=== PATIENT | female | born 1950 | race American Indian/Alaskan Native ===

== ENCOUNTER 2017-11-03 08:21 | Day surgery (SDC) | payer MEDICARE, MEDICAID ==
[2017-10-30 08:53] VITALS: BMI 29.2
[2017-11-03 08:52] LABS: BASO # 0.03 K/mm3 (0.0-2.0); BASO % 0.5 % (0.0-3.0); EOS # 0.2 (0.0-0.7); EOS % 2.6 % (1.5-5.0); GRAN # 3.05 (1.4-6.5); GRAN % 50.5 % (50.0-68.0); HEMOGLOBIN 9.1 g/dL (12.0-16.0); LYMPH # 2.4 (1.2-3.4); LYMPH % 40.4 % (22.0-35.0); MEAN CELL VOLUME 74.3 fl (80.0-105.0); MEAN CORPUSCULAR HEMOGLOBIN 24.1 pg (25.0-35.0); MEAN CORPUSCULAR HGB CONC 32.5 g/dl (31.0-37.0); MEAN PLATELET VOLUME 11.4 fl (7.0-11.0); MONO # 0.4 (0.1-0.6); RBC 3.77 10^6/uL (3.5-6.1); RED CELL DISTRIBUTION WIDTH 13.9 % (11.5-14.5)
[2017-11-03 08:58] LABS: BLOOD UREA NITROGEN 24 mg/dL (7-21); GFR AFRICAN-AMERICAN > 60; GFR NON-AFRICAN AMERICAN > 60; HDL CHOLESTEROL 63 mg/dL (29-60)
[2017-11-03 09:08] LABS: LDL CHOLESTEROL 64 mg/dL (0-129)
[2017-11-03 09:09] LABS: INR 0.98 (0.93-1.08); PARTIAL THROMBOPLASTIN TIME 28.3 Seconds (25.1-36.5); PROTHROMBIN TIME 11.3 SECONDS (9.4-12.5)
[2017-11-03 09:13] VITALS: RESP 18
[2017-11-03] MEDS ORDERED: Iohexol 350mgl/ml 50 ML ONE (10:28)
[2017-11-03] MEDS ORDERED: HEPARIN SODIUM/NS 2,000 ML IV ONE (10:28)
[2017-11-03] MEDS ORDERED: Iohexol 350 MG/100 ML VIAL ONE (10:28)
[2017-11-03] MEDS ORDERED: Lidocaine 2% Inj (20ml) ONE (10:28)
[2017-11-03] MEDS ORDERED: Midazolam 2 MG/2 ML VIAL ONE (10:55)
[2017-11-03] MEDS ORDERED: Sodium Chloride 0.45% 1,000 ML IV SCH (11:30)
[2017-11-03 11:46] VITALS: TEMP 97.8
[2017-11-03 12:23] VITALS: O2SAT 100
[2017-11-03 14:44] VITALS: BP 140/79; PULSE 61
--- NOTE | 2017-11-09 06:04 | CARD ---
APPROVED REPORT Procedure(s) performed: Left Heart Catheterization Complete Heart Catheterization Left Ventriculogram HISTORY with insulin treatment , hypertension , dyslipidemia . INDICATION The indication(s) include : positive stress test, stable angina (Silent AK(no time period)), chest pain, dyspnea. CASE TECHNIQUE The patient was brought electively to the Cardiac Catheterization Laboratory in a fasting state and was prepped and draped in a sterile manner. The was infiltrated with 2% Lidocaine subcutaneous without difficulty. Coronary angiography was performed using coronary diagnostic catheters. The left coronary system was accessed and visualized with a Diagnostic catheter. The right coronary system was accessed and visualized with a Diagnostic catheter. The left ventricle was accessed and visualized with a Diagnostic catheter. Left ventricular/Aortic Valve gradient assessed on pullback. Left ventriculogram was performed in SON projection. Closure device was deployed with a 6 Fr Angio-Seal without any complications. The patient tolerated the procedure well and there were no complications associated with the procedure. Vessel Analysis The patient's coronary anatomy is right dominant. The left main coronary artery is a large size vessel with intimal irregularities. The left main bifurcates to the left anterior descending and circumflex. The left anterior descending artery is a medium size vessel . There is a 90% stenosis in the mid segment. The circumflex artery is a medium size vessel . There is a 90% stenosis in the mid segment. The first obtuse marginal branch is a large size vessel . There is a 50% stenosis in the mid segment. The right coronary artery is a medium size vessel . There is a 90% stenosis in the proximal segmentin the distal segment. Left Ventricle The left ventricle is normal in size with normal contractility. The left ventricular ejection fraction is estimated to be 60%. Conclusion Three vessel CAD. Normal left ventricular function. Recommendations Aggressive Medical TherapyCardiac Risk Reduction Program Weight Loss Reduction Program CABG evluation.
== END 2017-11-03 16:00 | disposition home or self-care (01) ==
LOC: CATH 08:21
PROVIDERS: ATTEND Internal Medicine Cardiovascular Disease
DX: I25.10 Atherosclerotic heart disease of native coronary artery without angina pectoris (principal); E78.00 Pure hypercholesterolemia, unspecified; I10 Essential (primary) hypertension; E11.9 Type 2 diabetes mellitus without complications; I50.32 Chronic diastolic (congestive) heart failure; G47.33 Obstructive sleep apnea (adult) (pediatric); E78.5 Hyperlipidemia, unspecified; E66.3 Overweight; Z68.29 Body mass index [BMI] 29.0-29.9, adult; I25.110 Atherosclerotic heart disease of native coronary artery with unstable angina pectoris; I21.9 Acute myocardial infarction, unspecified; R94.39 Abnormal result of other cardiovascular function study
CPT/HCPCS: 36415; 80048; 80061; 85025; 85610; 85730; 86850; 86900; 93458; 99152; C1713; C1760; C1769; C1887 ×2; J1644; J2250; J3010; J7030; J7040; Q9967 ×2